=== PATIENT | male | born 1970 | race Caucasian/White ===

== ENCOUNTER → 2022-01-27 | Emergency (ER) | payer OTHER ==
[~2022-01-27] VITALS: Ht 170.2 cm; Wt 81.6 kg
== END | disposition expired ==
LOC: ER 16:26
DX: T75.1XXA Unspecified effects of drowning and nonfatal submersion, initial encounter (principal); Y93.9 Activity, unspecified; Y92.89 Other specified places as the place of occurrence of the external cause; Y99.9 Unspecified external cause status